=== PATIENT | female | born 1980 | race Caucasian/White ===

== ENCOUNTER 2022-03-06 18:39 | Emergency (ER) | payer OTHER ==
[~2022-03-06] VITALS: Ht 162.6 cm; Wt 46.7 kg
[2022-03-06] MEDS ORDERED: PREGABALIN150 MG PO (19:26)
[2022-03-06] MEDS ORDERED: CITALOPRAM HBR10 MG PO (19:26)
[2022-03-06] MEDS ORDERED: ONDANSETRON ODT8 MG PO (20:24)
== END 2022-03-06 21:00 | disposition home or self-care (01) ==
LOC: ED 18:39
DX: A08.4 Viral intestinal infection, unspecified (principal); Z88.0 Allergy status to penicillin
CPT/HCPCS: 36415; 80053; 81001; 83735; 84703; 85025; 96374; 99284-25; A9270; J2405; J7030; J7040